=== PATIENT | male | born 1995 | race Caucasian/White ===

== ENCOUNTER 2018-02-10 21:59 | Emergency (ER) | payer OTHER ==
[2018-02-10] MEDS: Bacitracin/Neomycin/Polymyxin B Oint 0.9 GM U/D Packet TOP ONE (22:15)
[2018-02-10 22:16] VITALS: BP 154/78
--- NOTE | 2018-02-10 22:29 | EDM.PDOC ---
ED HPI GENERAL MEDICAL PROBLEM - General Chief Complaint: Upper Extremity Injury/Pain Stated Complaint: left ring finger avulsion Time Seen by Provider: 02/10/18 22:04 Source of Information: Reports: Patient History Limitations: Reports: No Limitations - History of Present Illness Onset: Today, Sudden Onset Time: 10:05 Duration: Minutes: Location: Reports: Upper Extremity, Left (4th digit) Quality: Reports: Ache, Pressure Severity: Moderate Improves with: Reports: None Worsens with: Reports: None Context: Reports: Activity Associated Symptoms: Reports: No Other Symptoms - Related Data Allergies Allergy/AdvReac Type Severity Reaction Status Date / Time No Known Drug Allergies Allergy none Verified 02/10/18 22:17 Home Meds: Home Meds Losartan [Cozaar] 100 mg PO DAILY 02/10/18 [History] busPIRone [Buspar] 10 mg PO BID 02/10/18 [History] Past Medical History - Past Health History Medical/Surgical History: Denies Medical/Surgical History HEENT History: Reports: None Cardiovascular History: Reports: Hypertension Respiratory History: Reports: None Gastrointestinal History: Reports: None Genitourinary History: Reports: None CHAINMAN History: Reports: None Musculoskeletal History: Reports: Other (See Below) (Crush injury Left 5th digit one year ago) Neurological History: Reports: None Psychiatric History: Reports: Anxiety Endocrine/Metabolic History: Reports: Obesity/BMI 30+ Hematologic History: Reports: None Immunologic History: Reports: None Oncologic (Cancer) History: Reports: None Dermatologic History: Reports: None - Infectious Disease History Infectious Disease History: Reports: None Review of Systems - Review of Systems Review Of Systems: See Below Constitutional: Reports: No Symptoms Eyes: Reports: No Symptoms Ears: Reports: No Symptoms Nose: Reports: No Symptoms Mouth/Throat: Reports: No Symptoms Respiratory: Reports: No Symptoms Cardiovascular: Reports: No Symptoms GI/Abdominal: Reports: No Symptoms Genitourinary: Reports: No Symptoms Musculoskeletal: Reports: No Symptoms Skin: Reports: No Symptoms Neurological: Reports: No Symptoms Psychiatric: Reports: No Symptoms ED EXAM, GENERAL - Physical Exam Exam: See Below Exam Limited By: No Limitations General Appearance: Alert, WD/WN, Mild Distress Head: Atraumatic Neck: Normal Inspection Respiratory/Chest: No Respiratory Distress, Lungs Clear Cardiovascular: Regular Rate, Rhythm, No Murmur GI/Abdominal: Normal Bowel Sounds, Soft, Non-Tender, No Organomegaly, No Distention, No Abnormal Bruit, No Mass (Male) Exam: Deferred Rectal (Males) Exam: Deferred Extremities: Other (Nail avulsion, complete. Left 4th digit with oozing of blood , minimal swelling range of motion intact. no compression resistance pain to pad or lateral.) Neurological: Alert, Oriented, CN II-XII Intact, Normal Cognition, Normal Gait, No Motor/Sensory Deficits Psychiatric: Normal Affect Skin Exam: Warm, Dry, Intact Course - Vital Signs Last Recorded V/S: Last Vital Signs Temp 35.7 C 02/10/18 22:00 Pulse 79 02/10/18 22:00 Resp 16 02/10/18 22:00 BP 154/78 H 02/10/18 22:00 Pulse Ox 96 02/10/18 22:00 - Orders/Labs/Meds Orders: Active Orders 24 hr Category Date Time Status Fingers Fourth Digit Lt F3 [CR] Stat Exams 02/10/18 22:05 Ordered Meds: Medications Discontinued Medications Generic Name Dose Route Start Last Admin Trade Name Ellis PRN Reason Stop Dose Admin Neomycin/Polymyxin/Bacitracin Confirm 02/10/18 22:26 Triple Antibiotic Oint Administered 02/10/18 22:27 Dose 1 each .ROUTE .STK-MED ONE Neomycin/Polymyxin/Bacitracin Confirm 02/10/18 22:34 Triple Antibiotic Oint Administered 02/10/18 22:35 Dose 2 each .ROUTE .STK-MED ONE Departure - Departure Time of Disposition: 22:45 Disposition: Home, Self-Care 01 Clinical Impression: Nail avulsion, Crushing injury of finger of left hand - Discharge Information Forms: ED Department Discharge - Problem List & Annotations (1) Nail avulsion SNOMED Code(s): 510477925, 428270474 Code(s): UTO0298 - Status: Acute Priority: High Onset Date: ~02/10/18 Annotation/Comment:: cleansed and dressed with antibiotic and gauze (2) Crushing injury of finger of left hand SNOMED Code(s): 42386848 Code(s): S67.22XA - CRUSHING INJURY OF LEFT HAND, INITIAL ENCOUNTER Status : Acute Priority: High Onset Date: ~02/10/18 Annotation/Comment:: Radiology obtained with non displacement of distal phlange, ? tuft fx, over read pending. - Problem List Review Problem List Initiated/Reviewed/Updated: Yes - My Orders Last 24 Hours: My Active Orders 02/10/18 22:05 Fingers Fourth Digit Lt F3 [CR] Stat - Assessment/Plan Last 24 Hours: My Active Orders 02/10/18 22:05 Fingers Fourth Digit Lt F3 [CR] Stat Plan: Keep clean and dry. Check with clinic to conform up to date on tetanus status. Facility will call you if fractured. Contact clinic or return as needed. Chance of infection if soiled, or gets wet or contaminated.
[2018-02-11] MEDS: Bacitracin/Neomycin/Polymyxin B Oint 0.9 GM U/D Packet ONE ×2 (00:25)
[2018-02-11] MEDS: Bacitracin/Neomycin/Polymyxin B Oint 0.9 GM U/D Packet TOP ONE (00:26)
== END 2018-02-10 22:55 | disposition home or self-care (01) ==
LOC: KA.ED 21:59
DX: S67.195A Crushing injury of left ring finger, initial encounter (principal); I10 Essential (primary) hypertension; E66.9 Obesity, unspecified; W23.0XXA Caught, crushed, jammed, or pinched between moving objects, initial encounter; Y92.89 Other specified places as the place of occurrence of the external cause; Y99.0 Civilian activity done for income or pay; Z79.899 Other long term (current) drug therapy
CPT/HCPCS: 73140-F3; 99283